=== PATIENT | female | born 1985 | race African-American/Black ===

== ENCOUNTER → 2019-02-15 | Outpatient (CLI) | payer MEDICAID | LOC: MHCPAIN 14:33 | DX: G89.29 Other chronic pain (principal); M47.817 Spondylosis without myelopathy or radiculopathy, lumbosacral region; M54.16 Radiculopathy, lumbar region; M53.3 Sacrococcygeal disorders, not elsewhere classified | CPT/HCPCS: G0463 ==

== ENCOUNTER → 2019-02-23 | Outpatient (CLI) | payer MEDICAID | LOC: MHCPAIN 09:45 | DX: M47.817 Spondylosis without myelopathy or radiculopathy, lumbosacral region (principal); M54.16 Radiculopathy, lumbar region | CPT/HCPCS: J1100; Q9967 ==

== ENCOUNTER → 2020-06-07 | Outpatient (CLI) | payer SELFPAY | LOC: ZCOL.LAB 12:35 → EDSTATUS 15:18 | DX: U07.1 COVID-19 (principal) ==